=== PATIENT | female | born 1950 | race Caucasian/White ===

== ENCOUNTER 2017-08-08 12:30 | Outpatient (RCR) | payer MEDICARE, OTHER | END 2017-08-15 | LOC: M CR 08-10 15:06 | DX: Z95.2 Presence of prosthetic heart valve (principal); Z98.890 Other specified postprocedural states | CPT/HCPCS: 93798 ==

== ENCOUNTER 2017-08-16 09:08 | Outpatient (RCR) | payer MEDICARE, OTHER | END 2017-09-12 | LOC: M CR 09:08 | DX: Z95.2 Presence of prosthetic heart valve (principal) | CPT/HCPCS: 93798 ==

== ENCOUNTER 2017-09-17 10:14 | Outpatient (RCR) | payer MEDICARE, OTHER | END 2017-10-13 | LOC: M CR 10:14 | DX: Z95.2 Presence of prosthetic heart valve (principal) | CPT/HCPCS: 93798 ==

== ENCOUNTER → 2024-01-24 | Outpatient (CLI) | payer MEDICARE, OTHER ==
[~2024-01-24] MED LIST: ALEN70SO2 PO; ASPI-255 PO; IRON50TA PO
== END ==
LOC: M PLAIMG 08:29
PROVIDERS: ATTEND Physician Assistant
DX: I08.0 Rheumatic disorders of both mitral and aortic valves (principal); Z95.3 Presence of xenogenic heart valve